=== PATIENT | female | born 1950 | race Asian ===

== ENCOUNTER 2022-09-08 11:51 | Inpatient (IN) | payer BC, MEDICAID ==
[~2022-09-08] VITALS: Ht 160 cm; Wt 38.7 kg
[2022-09-08 13:21] LABS: BASOPHILS % 0.2 % (0.0-2.0); EOSINOPHILS % 0.4 % (0.0-5.0); HEMATOCRIT. 25.2 % (36.0-48.0); HEMOGLOBIN. 8.7 g/dL (12.0-16.0); LYMPHOCYTES % 17.4 % (20.0-50.0); MEAN CORPUSCULAR VOLUME 90.1 fL (81.0-99.0); MEAN PLATELET VOLUME 7.6 fl (7.4-10.4); MONOCYTES % 5.6 % (2.0-8.0); NEUTROPHILS % 76.4 % (40.0-76.0); PLATELET 266 x1000/uL (130-400); RED BLOOD CELL COUNT 2.79 mill/uL (4.2-5.4); RED CELL DISTRIBUTION WIDTH 14.8 % (11.6-14.6)
[2022-09-08 13:29] LABS: CHLORIDE 105 mEq/L (98-107)
[2022-09-08 13:46] LABS: CREATINE KINASE 748 IU/L (26-192); ETHANOL BLOOD < 10 mg/dL
[2022-09-08] MEDS ORDERED: POTASSIUM CHLORIDE 20MEQ TABLET SR PO NR (14:45)
[2022-09-08] MEDS ORDERED: FUROSEMIDE 40MG/4ML VIAL IVP NR (14:45)
[2022-09-08 17:57] LABS: CLARITY URINE CLEAR (CLEAR); COLOR URINE YELLOW (YELLOW); KETONES URINE NEGATIVE (NEGATIVE); LEUKOCYTE ESTERASE URINE NEGATIVE (NEGATIVE); NITRITE URINE NEGATIVE (NEGATIVE); OCCULT BLOOD URINE 1+ (NEGATIVE); PH URINE 7.5 (4.5-8.0); PROTEIN URINE NEGATIVE (NEGATIVE); SPECIFIC GRAVITY URINE 1.006 (1.005-1.030); UROBILINOGEN URINE 0.2 E.U./dL (0.2-1.0)
[2022-09-08 18:12] LABS: *AMPHETAMINES SCREEN URINE NEGATIVE (NEGATIVE); *BARBITURATES SCREEN URINE NEGATIVE (NEGATIVE); *BENZODIAZEPINES SCREEN URINE NEGATIVE (NEGATIVE); *COCAINE SCREEN URINE NEGATIVE (NEGATIVE); CANNABINOID URINE SCREEN NEGATIVE (NEGATIVE); METHADONE URINE SCREEN NEGATIVE (NEGATIVE); OPIATES URINE SCREEN NEGATIVE (NEGATIVE); PHENCYCLIDINE URINE SCREEN NEGATIVE (NEGATIVE)
[2022-09-08] MEDS ORDERED: GUAIFENESIN 200MG/10ML SUGAR FREE UDC PO PRN (22:45)
[2022-09-08] MEDS ORDERED: CLONIDINE 0.1MG TABLET PO PRN (22:45)
[2022-09-08] MEDS ORDERED: ONDANSETRON HCL 4MG/2ML INJ IV PRN (22:45)
[2022-09-08] MEDS ORDERED: MAGNESIUM/ALUMINUM HYDROXIDE/SIMETHICONE 30ML UDC PO PRN (22:45)
[2022-09-08] MEDS ORDERED: ACETAMINOPHEN 325MG TABLET PO PRN (22:45)
[2022-09-09] MEDS ORDERED: FOLIC ACID 1 MG, THIAMINE HCL 100 MG, MVI, ADULT NO.1 10 ML in DEXT 5%/LACTATED RINGERS... IV NR ×4 (00:15)
[2022-09-09 05:21] LABS: BASOPHILS % 0.4 % (0.0-2.0); EOSINOPHILS % 0.9 % (0.0-5.0); HEMOGLOBIN. 9.7 g/dL (12.0-16.0); LYMPHOCYTES % 26.6 % (20.0-50.0); MEAN CORPUSCULAR HEMOGLOBIN 30.9 pg (28.0-32.0); MEAN CORPUSCULAR VOLUME 89.5 fL (81.0-99.0); MEAN PLATELET VOLUME 7.6 fl (7.4-10.4); MONOCYTES % 5.4 % (2.0-8.0); NEUTROPHILS % 66.7 % (40.0-76.0); PLATELET 318 x1000/uL (130-400); RED BLOOD CELL COUNT 3.13 mill/uL (4.2-5.4)
[2022-09-09 05:28] LABS: CHLORIDE 100 mEq/L (98-107)
[2022-09-09 05:38] LABS: HDL CHOLESTEROL 71 mg/dL (40-59); LDL CHOLESTEROL 52 mg/dL (5-100); T4 FREE 1.26 ng/dL (0.76-1.46); TOTAL IRON BINDING CAPACITY 271 ug/dL (250-450)
[2022-09-09 05:41] LABS: CREATINE KINASE MB FRACTION 1.8 ng/mL (0.5-3.6)
[2022-09-09 06:08] LABS: FERRITIN 441 ng/mL (10-291)
[2022-09-09 06:11] LABS: VITAMIN B12 SERUM 748 pg/mL (211-911)
[2022-09-09 06:24] LABS: FOLIC ACID (FOLATE) SERUM > 20.00 ng/mL (>5.38)
[2022-09-09] MEDS ORDERED: KETOROLAC 15MG/ML VIAL IV PRN (09:15)
[2022-09-09] MEDS: ENOXAPARIN 30MG/0.3ML SYR SUBCUT SCH (09:17)
[2022-09-09] MEDS: FAMOTIDINE 20MG TABLET PO SCH (09:17)
[2022-09-09] MEDS: ASPIRIN 325MG EC TABLET PO SCH (09:44)
[2022-09-09] MEDS ORDERED: POTASSIUM CHLORIDE 20MEQ/PACKET PO SCH (10:00)
[2022-09-09] MEDS ORDERED: KCL 20MEQ/100ML PREMIX 100 ML IV SCH (10:00)
[2022-09-09] MEDS: ZINC SULFATE 220 MG ( 50 ) CAPSULE PO SCH (10:17)
[2022-09-09] MEDS: ASCORBIC ACID 500 MG TABLET PO SCH ×2 (10:17→22:36)
[2022-09-09 17:26] LABS: CREATINE KINASE MB FRACTION 1.7 ng/mL (0.5-3.6); T4 FREE 1.26 ng/dL (0.76-1.46)
[2022-09-09 20:00] VITALS: BP 117/71
[2022-09-09] MEDS: ZOLPIDEM TARTRATE 5MG TABLET PO PRN (22:37)
[2022-09-10] VITALS: BP 129/57
[2022-09-10 04:00] VITALS: BP 136/82
[2022-09-10 07:36] LABS: BASOPHILS % 0.3 % (0.0-2.0); EOSINOPHILS % 1.1 % (0.0-5.0); HEMATOCRIT. 26.2 % (36.0-48.0); HEMOGLOBIN. 8.9 g/dL (12.0-16.0); LYMPHOCYTES % 31.4 % (20.0-50.0); MEAN CORPUSCULAR VOLUME 91.1 fL (81.0-99.0); MEAN PLATELET VOLUME 7.8 fl (7.4-10.4); MONOCYTES % 6.3 % (2.0-8.0); NEUTROPHILS % 60.9 % (40.0-76.0); PLATELET 299 x1000/uL (130-400); RED BLOOD CELL COUNT 2.87 mill/uL (4.2-5.4)
[2022-09-10 08:01] LABS: CHLORIDE 101 mEq/L (98-107)
[2022-09-10 08:09] LABS: PHOSPHORUS 3.6 mg/dL (2.5-4.9)
[2022-09-10] MEDS ORDERED: POTASSIUM CHLORIDE 20MEQ TABLET SR PO NR (08:15)
[2022-09-10 08:35] VITALS: BP 99/53
[2022-09-10] MEDS: ASPIRIN 325MG EC TABLET PO SCH (09:08)
[2022-09-10] MEDS: FAMOTIDINE 20MG TABLET PO SCH (09:08)
[2022-09-10] MEDS: ASCORBIC ACID 500 MG TABLET PO SCH ×2 (09:08→21:37)
[2022-09-10] MEDS: ZINC SULFATE 220 MG ( 50 ) CAPSULE PO SCH (09:09)
[2022-09-10] MEDS: ENOXAPARIN 30MG/0.3ML SYR SUBCUT SCH (09:09)
[2022-09-10] MEDS ORDERED: SODIUM CHLORIDE 0.9% 1,000 ML IV ONE (10:15)
[2022-09-10 10:49] LABS: TOTAL IRON BINDING CAPACITY 226 ug/dL (250-450)
[2022-09-10] MEDS: KCL 20MEQ/100ML PREMIX 100 ML IV SCH ×2 (11:46→14:34)
[2022-09-10 15:22] VITALS: BP 117/73
[2022-09-10 20:00] VITALS: BP 140/77
[2022-09-11] VITALS: BP 139/76
[2022-09-11 04:00] VITALS: BP 121/72
[2022-09-11 06:53] LABS: BASOPHILS % 0.2 % (0.0-2.0); EOSINOPHILS % 1.1 % (0.0-5.0); HEMATOCRIT. 27.4 % (36.0-48.0); HEMOGLOBIN. 9.2 g/dL (12.0-16.0); LYMPHOCYTES % 27.5 % (20.0-50.0); MEAN CORPUSCULAR VOLUME 92.2 fL (81.0-99.0); MEAN PLATELET VOLUME 8.3 fl (7.4-10.4); NEUTROPHILS % 64.2 % (40.0-76.0); PLATELET 302 x1000/uL (130-400); RED BLOOD CELL COUNT 2.97 mill/uL (4.2-5.4); RED CELL DISTRIBUTION WIDTH 15.2 % (11.6-14.6)
[2022-09-11 08:00] VITALS: BP 128/82
[2022-09-11] MEDS: ASPIRIN 325MG EC TABLET PO SCH (09:27)
[2022-09-11] MEDS: ASCORBIC ACID 500 MG TABLET PO SCH ×2 (09:27→20:33)
[2022-09-11] MEDS: ZINC SULFATE 220 MG ( 50 ) CAPSULE PO SCH (09:27)
[2022-09-11] MEDS: FAMOTIDINE 20MG TABLET PO SCH (09:27)
[2022-09-11] MEDS: ENOXAPARIN 30MG/0.3ML SYR SUBCUT SCH (09:28)
[2022-09-11 12:00] VITALS: BP 135/53
[2022-09-11 16:00] VITALS: BP 144/60
[2022-09-11 20:00] VITALS: BP 142/88
[2022-09-11] MEDS: ZOLPIDEM TARTRATE 5MG TABLET PO PRN (22:20)
[2022-09-12 00:15] VITALS: BP 120/65
[2022-09-12 04:00] VITALS: BP 122/65
[2022-09-12 08:00] VITALS: BP 136/78
[2022-09-12] MEDS: FAMOTIDINE 20MG TABLET PO SCH (08:35)
[2022-09-12] MEDS: ZINC SULFATE 220 MG ( 50 ) CAPSULE PO SCH (08:35)
[2022-09-12] MEDS: ASPIRIN 325MG EC TABLET PO SCH (08:35)
[2022-09-12] MEDS: ASCORBIC ACID 500 MG TABLET PO SCH ×2 (08:35→20:29)
[2022-09-12] MEDS: ENOXAPARIN 30MG/0.3ML SYR SUBCUT SCH (08:38)
[2022-09-12 12:00] VITALS: BP 114/72
[2022-09-12 16:00] VITALS: BP 113/65
[2022-09-12 17:38] LABS: BASOPHILS % 0.3 % (0.0-2.0); EOSINOPHILS % 1.6 % (0.0-5.0); HEMATOCRIT. 25.7 % (36.0-48.0); HEMOGLOBIN. 8.5 g/dL (12.0-16.0); LYMPHOCYTES % 20.9 % (20.0-50.0); MEAN CORPUSCULAR HEMOGLOBIN 31.1 pg (28.0-32.0); MEAN CORPUSCULAR VOLUME 93.7 fL (81.0-99.0); MEAN PLATELET VOLUME 8.2 fl (7.4-10.4); MONOCYTES % 6.4 % (2.0-8.0); NEUTROPHILS % 70.8 % (40.0-76.0); PLATELET 305 x1000/uL (130-400); RED BLOOD CELL COUNT 2.74 mill/uL (4.2-5.4); RED CELL DISTRIBUTION WIDTH 15.7 % (11.6-14.6)
[2022-09-12 17:46] LABS: CHLORIDE 105 mEq/L (98-107)
[2022-09-12 20:00] VITALS: BP 136/83
[2022-09-12] MEDS: ZOLPIDEM TARTRATE 5MG TABLET PO PRN (20:29)
[2022-09-13] VITALS: BP 148/58
[2022-09-13 04:00] VITALS: BP 134/75
[2022-09-13 08:00] VITALS: BP 130/89
[2022-09-13] MEDS: ASCORBIC ACID 500 MG TABLET PO SCH ×2 (09:36→20:44)
[2022-09-13] MEDS: ENOXAPARIN 30MG/0.3ML SYR SUBCUT SCH (09:36)
[2022-09-13] MEDS: ZINC SULFATE 220 MG ( 50 ) CAPSULE PO SCH (09:36)
[2022-09-13] MEDS: ASPIRIN 325MG EC TABLET PO SCH (09:36)
[2022-09-13] MEDS: FAMOTIDINE 20MG TABLET PO SCH (09:36)
[2022-09-13 12:00] VITALS: BP 122/81
[2022-09-13 16:00] VITALS: BP 131/88
[2022-09-13 20:00] VITALS: BP 139/74
[2022-09-13] MEDS: ZOLPIDEM TARTRATE 5MG TABLET PO PRN (20:44)
[2022-09-14] VITALS: BP 137/86
[2022-09-14 04:00] VITALS: BP 153/85
[2022-09-14 06:33] LABS: BASOPHILS % 0.5 % (0.0-2.0); EOSINOPHILS % 1.9 % (0.0-5.0); HEMATOCRIT. 23.1 % (36.0-48.0); HEMOGLOBIN. 7.8 g/dL (12.0-16.0); LYMPHOCYTES % 29.7 % (20.0-50.0); MEAN CORPUSCULAR HEMOGLOBIN 31.5 pg (28.0-32.0); MEAN CORPUSCULAR VOLUME 92.9 fL (81.0-99.0); MEAN PLATELET VOLUME 8.4 fl (7.4-10.4); MONOCYTES % 8.1 % (2.0-8.0); NEUTROPHILS % 59.8 % (40.0-76.0); PLATELET 276 x1000/uL (130-400); RED BLOOD CELL COUNT 2.49 mill/uL (4.2-5.4); RED CELL DISTRIBUTION WIDTH 16.1 % (11.6-14.6)
[2022-09-14 06:39] LABS: CHLORIDE 109 mEq/L (98-107)
[2022-09-14 08:00] VITALS: BP 110/74
[2022-09-14] MEDS: FAMOTIDINE 20MG TABLET PO SCH (09:03)
[2022-09-14] MEDS: ASPIRIN 325MG EC TABLET PO SCH (09:03)
[2022-09-14] MEDS: ASCORBIC ACID 500 MG TABLET PO SCH ×2 (09:03→22:49)
[2022-09-14] MEDS: ZINC SULFATE 220 MG ( 50 ) CAPSULE PO SCH (09:03)
[2022-09-14] MEDS: ENOXAPARIN 30MG/0.3ML SYR SUBCUT SCH (09:03)
[2022-09-14 12:00] VITALS: BP 133/64
[2022-09-14 16:00] VITALS: BP 149/82
[2022-09-14 20:00] VITALS: BP 130/67
[2022-09-15] VITALS: BP 132/62
[2022-09-15 04:00] VITALS: BP 151/67
[2022-09-15 06:34] LABS: BASOPHILS % 0.1 % (0.0-2.0); HEMATOCRIT. 21.6 % (36.0-48.0); HEMOGLOBIN. 7.2 g/dL (12.0-16.0); LYMPHOCYTES % 14.7 % (20.0-50.0); MEAN CORPUSCULAR HEMOGLOBIN 31.1 pg (28.0-32.0); MEAN CORPUSCULAR VOLUME 92.8 fL (81.0-99.0); MEAN PLATELET VOLUME 7.7 fl (7.4-10.4); MONOCYTES % 4.7 % (2.0-8.0); NEUTROPHILS % 79.5 % (40.0-76.0); PLATELET 297 x1000/uL (130-400); RED BLOOD CELL COUNT 2.33 mill/uL (4.2-5.4); RED CELL DISTRIBUTION WIDTH 15.6 % (11.6-14.6)
[2022-09-15 06:54] LABS: CHLORIDE 104 mEq/L (98-107)
[2022-09-15 08:00] VITALS: BP 152/76
[2022-09-15] MEDS: FAMOTIDINE 20MG TABLET PO SCH (11:16)
[2022-09-15] MEDS: ASCORBIC ACID 500 MG TABLET PO SCH ×2 (11:16→21:17)
[2022-09-15] MEDS: ASPIRIN 325MG EC TABLET PO SCH (11:16)
[2022-09-15] MEDS: ZINC SULFATE 220 MG ( 50 ) CAPSULE PO SCH (11:16)
[2022-09-15] MEDS: ENOXAPARIN 30MG/0.3ML SYR SUBCUT SCH (11:17)
[2022-09-15 12:00] VITALS: BP 144/78
[2022-09-15 16:00] VITALS: BP 128/70
[2022-09-15 20:00] VITALS: BP 127/74
[2022-09-15] MEDS: ZOLPIDEM TARTRATE 5MG TABLET PO PRN (21:18)
[2022-09-16] VITALS: BP 151/82
[2022-09-16 04:00] VITALS: BP 124/63
[2022-09-16 06:42] LABS: BASOPHILS % 0.2 % (0.0-2.0); EOSINOPHILS % 1.1 % (0.0-5.0); HEMATOCRIT. 25.4 % (36.0-48.0); HEMOGLOBIN. 8.7 g/dL (12.0-16.0); LYMPHOCYTES % 25.9 % (20.0-50.0); MEAN CORPUSCULAR HEMOGLOBIN 31.9 pg (28.0-32.0); MEAN CORPUSCULAR VOLUME 93.6 fL (81.0-99.0); MEAN PLATELET VOLUME 7.7 fl (7.4-10.4); MONOCYTES % 5.9 % (2.0-8.0); NEUTROPHILS % 66.9 % (40.0-76.0); PLATELET 318 x1000/uL (130-400); RED BLOOD CELL COUNT 2.71 mill/uL (4.2-5.4)
[2022-09-16 06:50] LABS: CHLORIDE 108 mEq/L (98-107)
[2022-09-16 08:00] VITALS: BP 114/77
[2022-09-16] MEDS: FAMOTIDINE 20MG TABLET PO SCH (10:31)
[2022-09-16] MEDS: ENOXAPARIN 30MG/0.3ML SYR SUBCUT SCH (10:31)
[2022-09-16] MEDS: ZINC SULFATE 220 MG ( 50 ) CAPSULE PO SCH (10:31)
[2022-09-16] MEDS: ASPIRIN 325MG EC TABLET PO SCH (10:31)
[2022-09-16] MEDS: ASCORBIC ACID 500 MG TABLET PO SCH ×2 (10:31→20:21)
[2022-09-16 12:00] VITALS: BP 130/69
[2022-09-16 16:00] VITALS: BP 127/61
[2022-09-16 20:00] VITALS: BP 133/89
[2022-09-16] MEDS: ZOLPIDEM TARTRATE 5MG TABLET PO PRN (20:20)
[2022-09-17] VITALS: BP 126/83
[2022-09-17 04:00] VITALS: BP 144/89
[2022-09-17 07:55] VITALS: BP 147/69
[2022-09-17] MEDS: ASPIRIN 325MG EC TABLET PO SCH (09:14)
[2022-09-17] MEDS: ENOXAPARIN 30MG/0.3ML SYR SUBCUT SCH (09:14)
[2022-09-17] MEDS: ZINC SULFATE 220 MG ( 50 ) CAPSULE PO SCH (09:14)
[2022-09-17] MEDS: ASCORBIC ACID 500 MG TABLET PO SCH ×2 (09:14→21:27)
[2022-09-17] MEDS: FAMOTIDINE 20MG TABLET PO SCH (09:15)
[2022-09-17 11:58] VITALS: BP 142/82
[2022-09-17 15:45] VITALS: BP 118/70
[2022-09-17 20:00] VITALS: BP 136/69
[2022-09-17] MEDS: ZOLPIDEM TARTRATE 5MG TABLET PO PRN (21:27)
[2022-09-18] VITALS: BP 142/70
[2022-09-18 04:00] VITALS: BP 150/64
[2022-09-18 06:34] LABS: HEMATOCRIT 22.6 % (36.0-48.0); HEMOGLOBIN 7.6 g/dL (12.0-16.0); MEAN CORPUSCULAR HEMOGLOBIN 31.5 pg (28.0-32.0); MEAN CORPUSCULAR VOLUME 93.8 fL (81.0-99.0); PLATELET 305 x1000/uL (130-400); RED BLOOD CELL COUNT 2.41 mill/uL (4.2-5.4); RED CELL DISTRIBUTION WIDTH 16.3 % (11.6-14.6)
[2022-09-18 08:00] VITALS: BP 163/80
[2022-09-18] MEDS: FAMOTIDINE 20MG TABLET PO SCH (09:00)
[2022-09-18] MEDS: ASCORBIC ACID 500 MG TABLET PO SCH ×2 (09:02→20:55)
[2022-09-18] MEDS: ZINC SULFATE 220 MG ( 50 ) CAPSULE PO SCH (09:02)
[2022-09-18] MEDS: ENOXAPARIN 30MG/0.3ML SYR SUBCUT SCH (09:03)
[2022-09-18] MEDS: ASPIRIN 325MG EC TABLET PO SCH (09:03)
[2022-09-18 12:00] VITALS: BP 136/79
[2022-09-18 16:00] VITALS: BP 120/68
[2022-09-18 20:00] VITALS: BP 112/73
[2022-09-18] MEDS: ZOLPIDEM TARTRATE 5MG TABLET PO PRN (21:24)
[2022-09-19] VITALS: BP 126/65
[2022-09-19 04:00] VITALS: BP 141/62
[2022-09-19 06:11] LABS: BASOPHILS % 0.5 % (0.0-2.0); EOSINOPHILS % 1.1 % (0.0-5.0); HEMATOCRIT. 23.6 % (36.0-48.0); LYMPHOCYTES % 23.8 % (20.0-50.0); MEAN CORPUSCULAR HEMOGLOBIN 31.4 pg (28.0-32.0); MEAN CORPUSCULAR VOLUME 93.2 fL (81.0-99.0); MEAN PLATELET VOLUME 7.3 fl (7.4-10.4); NEUTROPHILS % 68.6 % (40.0-76.0); PLATELET 320 x1000/uL (130-400); RED BLOOD CELL COUNT 2.53 mill/uL (4.2-5.4); RED CELL DISTRIBUTION WIDTH 16.5 % (11.6-14.6)
[2022-09-19 06:15] LABS: CHLORIDE 107 mEq/L (98-107)
[2022-09-19 08:00] VITALS: BP 121/64
[2022-09-19] MEDS: ASCORBIC ACID 500 MG TABLET PO SCH ×2 (09:17→22:34)
[2022-09-19] MEDS: ZINC SULFATE 220 MG ( 50 ) CAPSULE PO SCH (09:17)
[2022-09-19] MEDS: ASPIRIN 325MG EC TABLET PO SCH (09:17)
[2022-09-19] MEDS: FAMOTIDINE 20MG TABLET PO SCH (09:17)
[2022-09-19] MEDS: ENOXAPARIN 30MG/0.3ML SYR SUBCUT SCH (09:18)
[2022-09-19 12:00] VITALS: BP 150/72
[2022-09-19 20:00] VITALS: BP 124/60
[2022-09-19] MEDS: ZOLPIDEM TARTRATE 5MG TABLET PO PRN (22:34)
[2022-09-20] VITALS: BP 125/60
[2022-09-20 04:00] VITALS: BP 146/81
[2022-09-20 06:59] LABS: HEMATOCRIT 23.9 % (36.0-48.0); HEMOGLOBIN 8.1 g/dL (12.0-16.0); MEAN CORPUSCULAR HEMOGLOBIN 31.8 pg (28.0-32.0); PLATELET 331 x1000/uL (130-400); RED BLOOD CELL COUNT 2.54 mill/uL (4.2-5.4); RED CELL DISTRIBUTION WIDTH 16.7 % (11.6-14.6)
[2022-09-20] MEDS: ASCORBIC ACID 500 MG TABLET PO SCH ×2 (11:21→21:33)
[2022-09-20] MEDS: FAMOTIDINE 20MG TABLET PO SCH (11:21)
[2022-09-20] MEDS: ZINC SULFATE 220 MG ( 50 ) CAPSULE PO SCH (11:21)
[2022-09-20] MEDS: ASPIRIN 325MG EC TABLET PO SCH (11:21)
[2022-09-20] MEDS: ENOXAPARIN 30MG/0.3ML SYR SUBCUT SCH (11:22)
[2022-09-20 12:00] VITALS: BP 127/69
[2022-09-20 20:00] VITALS: BP 146/70
[2022-09-21] VITALS: BP 145/72
[2022-09-21 04:00] VITALS: BP 160/71
[2022-09-21 06:36] LABS: HEMATOCRIT 22.7 % (36.0-48.0); HEMOGLOBIN 7.7 g/dL (12.0-16.0); MEAN CORPUSCULAR HEMOGLOBIN 32.4 pg (28.0-32.0); MEAN CORPUSCULAR VOLUME 95.5 fL (81.0-99.0); PLATELET 322 x1000/uL (130-400); RED BLOOD CELL COUNT 2.38 mill/uL (4.2-5.4); RED CELL DISTRIBUTION WIDTH 17.1 % (11.6-14.6)
[2022-09-21 08:00] VITALS: BP 158/79
[2022-09-21] MEDS ORDERED: CLONIDINE 0.1MG TABLET PO PRN (08:30)
[2022-09-21] MEDS: ZINC SULFATE 220 MG ( 50 ) CAPSULE PO SCH (08:49)
[2022-09-21] MEDS: FAMOTIDINE 20MG TABLET PO SCH (08:49)
[2022-09-21] MEDS: ASCORBIC ACID 500 MG TABLET PO SCH ×2 (08:50→21:25)
[2022-09-21] MEDS: ENOXAPARIN 30MG/0.3ML SYR SUBCUT SCH (08:50)
[2022-09-21] MEDS: ASPIRIN 325MG EC TABLET PO SCH (08:50)
[2022-09-21 12:00] VITALS: BP 153/72
[2022-09-21 16:00] VITALS: BP 108/72
[2022-09-21 20:00] VITALS: BP 134/71
[2022-09-22] VITALS: BP 127/73
[2022-09-22 04:00] VITALS: BP 130/76
[2022-09-22 08:00] VITALS: BP 149/85
[2022-09-22 08:31] LABS: HEMOGLOBIN 8.2 g/dL (12.0-16.0); MEAN CORPUSCULAR HEMOGLOBIN 32.2 pg (28.0-32.0); MEAN CORPUSCULAR VOLUME 94.5 fL (81.0-99.0); PLATELET 339 x1000/uL (130-400); RED BLOOD CELL COUNT 2.54 mill/uL (4.2-5.4)
[2022-09-22] MEDS: FAMOTIDINE 20MG TABLET PO SCH (09:00)
[2022-09-22] MEDS: ASPIRIN 325MG EC TABLET PO SCH (10:03)
[2022-09-22] MEDS: ENOXAPARIN 30MG/0.3ML SYR SUBCUT SCH (10:03)
[2022-09-22] MEDS: ZINC SULFATE 220 MG ( 50 ) CAPSULE PO SCH (10:03)
[2022-09-22] MEDS: ASCORBIC ACID 500 MG TABLET PO SCH ×2 (10:03→20:17)
[2022-09-22 12:00] VITALS: BP 123/84
[2022-09-22 16:00] VITALS: BP 139/82
[2022-09-22 20:00] VITALS: BP 122/60
[2022-09-23] VITALS: BP 131/78
[2022-09-23 04:00] VITALS: BP 150/74
[2022-09-23] MEDS: ASCORBIC ACID 500 MG TABLET PO SCH ×2 (08:27→21:59)
[2022-09-23] MEDS: ZINC SULFATE 220 MG ( 50 ) CAPSULE PO SCH (08:27)
[2022-09-23] MEDS: FAMOTIDINE 20MG TABLET PO SCH (08:27)
[2022-09-23] MEDS: ENOXAPARIN 30MG/0.3ML SYR SUBCUT SCH (08:27)
[2022-09-23] MEDS: ASPIRIN 325MG EC TABLET PO SCH (08:27)
[2022-09-23 08:34] VITALS: BP 139/63
[2022-09-23 11:34] VITALS: BP 135/61
[2022-09-23 20:00] VITALS: BP 147/80
[2022-09-24 06:51] VITALS: BP 147/80
[2022-09-24 08:00] VITALS: BP 138/83
[2022-09-24] MEDS: ASCORBIC ACID 500 MG TABLET PO SCH (08:59)
[2022-09-24] MEDS: ASPIRIN 325MG EC TABLET PO SCH (08:59)
[2022-09-24] MEDS: ZINC SULFATE 220 MG ( 50 ) CAPSULE PO SCH (08:59)
[2022-09-24] MEDS: ENOXAPARIN 30MG/0.3ML SYR SUBCUT SCH (08:59)
[2022-09-24] MEDS: FAMOTIDINE 20MG TABLET PO SCH (08:59)
[2022-09-24 12:00] VITALS: BP 139/89
[2022-09-24 12:47] VITALS: BP 141/78
== END 2022-09-24 13:15 | disposition home health service (06) | DRG 70 ==
LOC: ER 11:51 → MICUSO 20:38 → EDBEDREQ 20:41 → EDBEDREQTM 20:41 → 7WST 09-09 20:52 → 6EST 09-19 11:26 → 5WST 09-23 13:55
PROVIDERS: ADMIT Internal Medicine; ATTEND Internal Medicine
DX: G93.41 Metabolic encephalopathy (principal); N17.0 Acute kidney failure with tubular necrosis; M62.82 Rhabdomyolysis; I50.30 Unspecified diastolic (congestive) heart failure; E86.0 Dehydration; I11.0 Hypertensive heart disease with heart failure; D64.9 Anemia, unspecified; E87.6 Hypokalemia; E88.09 Other disorders of plasma-protein metabolism, not elsewhere classified; R74.8 Abnormal levels of other serum enzymes
CPT/HCPCS: 36415; 70551; 71045; 80048; 80053; 80061; 80305; 80307; 80320; 80329; 81003; 82140; 82550; 82553; 82607; 82652; 82728; 82746; 82962; 83540; 83550; 83605; 83735; 83880; 84100; 84439; 84443; 84484; 85025; 85027; 86850; 86900; 87426; 93005; 93306; 93880; 93970; 97162; 97165; 97535; 99285; C1893; J1650; J1940; J3411; J3480; J3490; J7121; G0480

== ENCOUNTER 2023-04-30 11:24 | Emergency (ER) | payer BC, MEDICAID ==
[~2023-04-30] VITALS: Ht 167.6 cm; Wt 80.0 kg
[2023-04-30 11:27] VITALS: O2SAT 100
[2023-04-30 12:28] LABS: BASOPHILS % 0.7 % (0.0-2.0); EOSINOPHILS % 0.7 % (0.0-5.0); HEMATOCRIT. 33.3 % (36.0-48.0); HEMOGLOBIN. 11.3 g/dL (12.0-16.0); LYMPHOCYTES % 19.4 % (20.0-50.0); MEAN CORPUSCULAR HEMOGLOBIN 30.3 pg (28.0-32.0); MEAN CORPUSCULAR HGB CONC 33.8 g/dL (31.0-37.0); MEAN CORPUSCULAR VOLUME 89.8 fL (81.0-99.0); MEAN PLATELET VOLUME 6.8 fl (7.4-10.4); MONOCYTES % 5.8 % (2.0-8.0); NEUTROPHILS % 73.4 % (40.0-76.0); PLATELET 262 x1000/uL (130-400); RED BLOOD CELL COUNT 3.71 mill/uL (4.2-5.4); RED CELL DISTRIBUTION WIDTH 14.8 % (11.6-14.6); WHITE BLOOD COUNT 5.5 x1000/uL (4.5-11.0)
[2023-04-30 12:38] LABS: CHLORIDE 103 mEq/L (98-107); INDEX HEMOLYSI 1 (1-3); INDEX ICTERIC 1 (1-4); INDEX LIPEMIC 1 (1-3); POTASSIUM 3.7 mEq/L (3.5-5.1); SODIUM 137 mEq/L (136-145)
[2023-04-30 12:39] LABS: INR 0.9; PARTIAL THROMBOPLASTIN TIME 23.4 sec (23.4-31.0)
[2023-04-30 12:49] LABS: ALANINE AMINOTRANSFERASE 24 IU/L (13-61); ALBUMIN 4.2 g/dL (3.4-5.0); ASPARTATE AMINOTRANSFERASE 22 IU/L (15-37); BILIRUBIN TOTAL 0.4 mg/dL (0.1-1.0); CALCIUM 9.6 mg/dL (8.5-10.1); CARBON DIOXIDE 26 mEq/L (21-32); CREATININE 1.4 mg/dL (0.6-1.3); GLUCOSE 92 mg/dL (70-105); NT PRO B-TYPE NATRIURETIC PEP 319 pg/mL (5-125); TROPONIN I HIGH SENSITIVITY 6 ng/L (<54); UREA NITROGEN BLOOD 26 mg/dL (7-21)
[2023-04-30 14:46] LABS: TROPONIN I HIGH SENSITIVITY 6 ng/L (<54)
[2023-04-30 15:18] VITALS: BP 9/77; PULSE 73; RESP 16; TEMP 97.8
== END 2023-04-30 15:25 | disposition home or self-care (01) ==
LOC: ER 11:30
DX: R58 Hemorrhage, not elsewhere classified (principal); R07.89 Other chest pain; I10 Essential (primary) hypertension
CPT/HCPCS: 36415; 71045; 80053; 83880; 84484; 85025; 93005; 99285